=== PATIENT | male | born 1950 | race Caucasian/White ===

== ENCOUNTER 2021-02-09 08:22 | Day surgery (SDC) | payer BC, SELFPAY ==
[~2021-02-09] VITALS: Ht 180.3 cm; Wt 89.4 kg
[2021-02-09] MEDS ORDERED: MEPERIDINE 100 MG INJ. 100 MG/ML VIAL ONE (09:42)
[2021-02-09] MEDS ORDERED: SIMETHICONE 40 MG/0.6 ML ML ONE (09:42)
[2021-02-09] MEDS: MIDAZOLAM HCL 5 MG/5 ML VIAL ONE ×7 (10:02→10:30)
[2021-02-09] MEDS ORDERED: MEPERIDINE 100 MG INJ. 100 MG/ML VIAL IV ONE (10:31)
[2021-02-09 11:40] VITALS: BP_SYST 100
== END 2021-02-09 11:50 | disposition home or self-care (01) ==
LOC: SDS 08:22 → SMU 08:23 → SDS 11:50
PROVIDERS: ATTEND Internal Medicine Gastroenterology
DX: R19.5 Other fecal abnormalities (principal); D12.3 Benign neoplasm of transverse colon; K29.80 Duodenitis without bleeding; K29.50 Unspecified chronic gastritis without bleeding; K57.30 Diverticulosis of large intestine without perforation or abscess without bleeding; K64.8 Other hemorrhoids; K21.9 Gastro-esophageal reflux disease without esophagitis; Z20.828 Contact with and (suspected) exposure to other viral communicable diseases; Z79.899 Other long term (current) drug therapy
CPT/HCPCS: 36415; 43239; 45385; 87081; 88305; 88312; 88313; 99152; 99153; G0378; J2175; J2250; U0003; 45384